=== PATIENT | male | born 1965 | race African-American/Black ===

== ENCOUNTER 2018-11-28 09:45 | Inpatient (IN) | payer BC ==
[2018-11-29 13:52] VITALS: BMI 25.2
[2018-12-05] MEDS ORDERED: BUPIVACAINE LIPOSOME/PF (EXPAREL) 266 MG/20 ML VIAL ONE ×2 (06:33→08:13)
[2018-12-05] MEDS ORDERED: GABAPENTIN 300 MG CAPSULE (FP) PO STA (06:35)
[2018-12-05] MEDS ORDERED: oxyCODONE HCL 10 MG SUSTAINED ACTING TABLET PO STA (06:35)
[2018-12-05] MEDS ORDERED: PROPOFOL 20 ML ONE (06:43)
[2018-12-05] MEDS ORDERED: ROCURONIUM BROMIDE 50 MG/5 ML VIAL ONE (06:43)
[2018-12-05] MEDS ORDERED: SUCCINYLCHOLINE CHLORIDE 200 MG/10 ML VIAL ONE (06:43)
[2018-12-05] MEDS ORDERED: LIDOCAINE HCL/PF 2% SDV 5ML VIAL ONE (06:44)
[2018-12-05] MEDS ORDERED: CEFAZOLIN 2 GM/D5W 2 GM/50 ML ML IVPB ONE (06:45)
[2018-12-05] MEDS ORDERED: oxyCODONE HCL 10 MG SUSTAINED ACTING TABLET ONE (06:45)
[2018-12-05] MEDS ORDERED: MIDAZOLAM HCL 2 MG/2 ML SINGLE DOSE VIAL ONE ×3 (06:45)
[2018-12-05] MEDS ORDERED: GABAPENTIN 300 MG CAPSULE (FP) ONE (06:45)
[2018-12-05] MEDS ORDERED: ONDANSETRON 4 MG/2 ML VIAL IVPUSH PRN ×2 (07:11→11:02)
[2018-12-05] MEDS ORDERED: oxyCODONE HCL 5 MG TABLET PO PRN ×4 (07:11→11:02)
[2018-12-05] MEDS ORDERED: ACETAMINOPHEN 1000 MG/100 ML VIAL (NON FORMULARY) IVPB ONE (07:11)
[2018-12-05] MEDS ORDERED: LACTATED RINGERS SOLUTION 1,000 ML IV SCH ×2 (07:15→11:15)
[2018-12-05] MEDS ORDERED: THROMBIN (RECOMBINANT) 5,000 UNIT VIAL TP ONE (07:20)
[2018-12-05] MEDS ORDERED: GUM MASTIC/STORAX/MSAL/ALCOHOL 1 DRP DROPSBTL MC ONE (07:20)
[2018-12-05] MEDS ORDERED: BUPIVACAINE HCL/PF (5 MG/ML) 30 ML VIAL IJ ONE (08:13)
--- NOTE | 2018-12-05 08:26 | HP ---
History & Physical Update - History History: No Change - Physical Physical: No Change - Assessment Assessment: No Change - Plan Plan: No Change
[2018-12-05] MEDS ORDERED: SODIUM CHLORIDE 0.9% P/F 10 ML VIAL IJ ONE (08:48)
[2018-12-05] MEDS ORDERED: ceFAZolin SODIUM 1 GM VIAL ONE (08:49)
[2018-12-05] MEDS ORDERED: THROMBIN (BOVINE) 5,000 UNIT VIAL TP ONE (10:49)
[2018-12-05] MEDS ORDERED: GELATIN SPONGE,ABSORBABLE 1 GM PACKET TP ONE (10:49)
[2018-12-05] MEDS ORDERED: KETOROLAC TROMETHAMINE 30 MG/1 ML VIAL IVPB PRN (11:02)
--- NOTE | 2018-12-05 11:20 | OP ---
Operative Note - Note: Operative Date: 12/05/18 Pre-Operative Diagnosis: L5-S1 lumbar spondylolisthesis Operation: posterior lumbar decompression, instrumentation, fusion. Transforaminal interbody L5-S1 fusion with neuromonitoring and allograft Surgeon: Silverio Meraz [facility] Consultant: Nanda Garces Anesthesiologist/LOMBARDI DEVELOPER: Erick Castrejon Anesthesia: Spinal Estimated Blood Loss (mls): 20 Fluid Volume Replaced (mls): 700 Operative Report Dictated: Yes
--- NOTE | 2018-12-05 11:22 | SURG ---
Surgery Visual Designer Note Visual Designer: Nanda Garces PA-C Date of Service: 12/05/18 Diagnosis: L5-S1 lumbar spondylolisthesis Procedure: posterior lumbar decompression, instrumentation, fusion. Transforaminal interbody L5-S1 fusion with neuromonitoring and allograft I was present for the entirety of the operative procedure. For further detail, please refer to operative report. Visit type - Case Type Case Type: Scheduled - Emergency Emergency Visit: No - New patient This patient is new to me today: Yes Date on this admission: 12/05/18
--- NOTE | 2018-12-05 11:26 | OP ---
DATE OF OPERATION: 12/05/2018 PREOPERATIVE DIAGNOSES: 1. Spinal stenosis, L5-S1. 2. Degenerative disk disease, L5-S1. POSTOPERATIVE DIAGNOSES: 1. Spinal stenosis, L5-S1. 2. Degenerative disk disease, L5-S1. PROCEDURE PERFORMED: 1. Transforaminal lumber interbody fusion, L5-S1. 2. Placement of instrumentation. 3. Placement of prosthetic cage. SURGEON: Silverio Meraz MD HOSPICE ADMITTING CLERK: MITCHELL Stewart ESTIMATED BLOOD LOSS: 50 mL. INTRAVENOUS FLUIDS: Per Anesthesia. ANESTHESIA: Spinal/TLIP. COMPLICATIONS: There were none. DISPOSITION: Patient brought to PACU in stable condition. INDICATION FOR SURGERY: The patient is a 53-year-old gentleman who has been suffering from pain from his back down his legs. X-rays and MRI were completed which noted he had spinal stenosis at L5-S1 secondary to degenerative disk disease. He had gone through an exhaustive course of treatment for this which included medications, physical therapy as well as injections. Unfortunately his pain continued to persist despite all this. At this point risks, benefits, alternatives were discussed and the patient consented to surgery. DESCRIPTION OF PROCEDURE: Patient brought to the operating room by the anesthesia staff. After appropriate patient identification was performed spinal anesthesia was given. A TLIP block was also given. The patient was able to position himself prone on to the OR table with all areas of bony prominences well padded. At this time the C-arm was brought in and the L5-S1 pedicles were marked off. His back was prepped and draped in a sterile manner. At this point timeout was completed. Incisions were made bilaterally over the L5-S1 pedicles. Dissection was carried down to the fascia. Fascia was split open at this time. Under C-arm guidance trocars were advanced into both the L5-S1 pedicles. The trocar wire was inserted. Over the wire tap was performed. On the left-hand side tap was performed and then screws inserted. On the left-hand side retractor blades were set up to expose the L5-S1 facet joint. This was confirmed with an x-ray. The facet joint was removed. The disk was entered using a series of pituitaries, Kerrisons and curets. A diskectomy was completed. The endplates were decorticated at this time. Bone graft was laid down. A cage filled with bone graft was placed in. Tulip heads were placed over the screws. A rosemarie was measured and placed on the caps and compression was applied. On the right-hand side a rosemarie was measured and placed on the caps and compression was applied. All x-ray instrumentation was removed at this time. The fascia was closed with a No. 1 Vicryl suture. Subcutaneous tissue was closed with 2-0 Vicryl suture. Skin was closed with 3-0 Monocryl suture. Dermabond was applied. Steri-Strips were applied. Sterile dressing was applied. Patient placed supine on the OR bed and brought to the PACU in stable condition. SILVERIO EMRAZ M.D. ROBIN/[id number]
[2018-12-05] MEDS ORDERED: ACETAMINOPHEN INJECTION 100 ML IVPB ONE (11:44)
[2018-12-05 12:24] VITALS: TEMP 98.3
[2018-12-05] MEDS ORDERED: diazePAM 5 MG TABLET ONE (12:32)
[2018-12-05] MEDS ORDERED: diazePAM 5 MG TABLET PO ONE (12:52)
[2018-12-05] MEDS ORDERED: diazePAM 5 MG TABLET PO SCH (13:00)
[2018-12-05] MEDS ORDERED: CEFAZOLIN 1 GM/D5W 1 GM/50 ML BAG ONE (13:48)
[2018-12-05] MEDS ORDERED: oxyCODONE HCL 5 MG TABLET PO ONE (14:30)
[2018-12-05] MEDS ORDERED: oxyCODONE HCL 5 MG TABLET ONE (14:31)
[2018-12-05] MEDS ORDERED: CEFAZOLIN 1 GM/D5W 1 GM/50 ML BAG IVPB SCH (16:00)
[2018-12-05] MEDS ORDERED: INSULIN SLIDING SCALE (NOVOLOG) 1 VIAL SQ SCH (16:30)
[2018-12-05] MEDS ORDERED: metFORMIN HCL 500 MG TABLET (FP) PO SCH (16:30)
[2018-12-05 17:09] VITALS: PULSE 72
[2018-12-05 17:18] VITALS: BP 118/78
[2018-12-05] MEDS ORDERED: ACETAMINOPHEN 325 MG TABLET (FP) PO SCH (18:15)
[2018-12-05] MEDS ORDERED: HYDROCHLOROTHIAZIDE 12.5 MG CAPSULE (FP) PO SCH (22:00)
[2018-12-05] MEDS ORDERED: PATIENT'S OWN MEDICATION (NON-FORMULARY) (Lisinopril/Hydrochlorothiazide [Lisinopril-Hctz PO SCH (22:00)
[2018-12-05] MEDS ORDERED: LISINOPRIL 20 MG TABLET (FP) PO SCH (22:00)
[2018-12-06] MEDS ORDERED: ATORVASTATIN CA 10 MG TABLET (FP) PO SCH (10:00)
[2018-12-06] MEDS ORDERED: PATIENT'S OWN MEDICATION (NON-FORMULARY) (Simvastatin [Simvastatin] 10 MG) PO SCH (10:00)
[2018-12-06] MEDS ORDERED: MULTIVITAMINS (DAILY MVI) TABLET (FP) PO SCH (10:00)
== END 2018-12-05 17:40 | disposition home or self-care (01) | DRG 455 ==
LOC: FM/S 12-05 05:50
PROVIDERS: ADMIT Orthopaedic Surgery Orthopaedic Surgery of the Spine; ATTEND Orthopaedic Surgery Orthopaedic Surgery of the Spine
PROC: 0SG30K1 Fusion of Lumbosacral Joint with Nonautologous Tissue Substitute, Posterior Approach, Posterior Column, Open Approach (ICD-10-PCS; 2018-12-05)
PROC: 0ST40ZZ Resection of Lumbosacral Disc, Open Approach (ICD-10-PCS; 2018-12-05)
PROC: 4A11X4G Monitoring of Peripheral Nervous Electrical Activity, Intraoperative, External Approach (ICD-10-PCS; 2018-12-05)
PROC: 0SG30AJ Fusion of Lumbosacral Joint with Interbody Fusion Device, Posterior Approach, Anterior Column, Open Approach (ICD-10-PCS; principal; 2018-12-05 08:15)
DX: M48.07 Spinal stenosis, lumbosacral region (principal); M51.37 Other intervertebral disc degeneration, lumbosacral region; E11.9 Type 2 diabetes mellitus without complications; I10 Essential (primary) hypertension; E78.00 Pure hypercholesterolemia, unspecified; H40.9 Unspecified glaucoma
CPT/HCPCS: 72100-TC-FY; 82962; 94760; J0131

== ENCOUNTER 2018-12-11 13:42 | Inpatient (IN) | payer BC | END 2018-12-17 12:20 | disposition short-term general hospital (02) | LOC: FM/S 13:42 ==